=== PATIENT | female | born 1945 | race Two or more races ===

== ENCOUNTER 2018-12-01 22:25 | Inpatient (IN) | payer OTHER ==
[~2018-12-01] VITALS: Ht 152.4 cm; Wt 54.4 kg
[2018-12-01] MEDS ORDERED: LISI10TA5 PO (22:41)
[2018-12-01] MEDS ORDERED: PREDNISONE PO (22:41)
[2018-12-01] MEDS ORDERED: PANT40TA2 PO (22:41)
[2018-12-01 22:48] LABS: BASOPHILS # (AUTO) 0.1 K/uL (0.0-8.0); BASOPHILS % (AUTO) 0.9 % (0.0-2.0); EOSINOPHILS # (AUTO) 0.1 K/uL (0.0-0.7); EOSINOPHILS % (AUTO) 1.5 % (0.0-7.0); HEMATOCRIT 36.9 % (31.2-41.9); HEMOGLOBIN 12.2 g/dL (10.9-14.3); LYMPHOCYTES # (AUTO) 2.1 K/uL (20.0-40.0); MEAN CORPUSCULAR HEMOGLOBIN 31.7 uug (24.7-32.8); MEAN CORPUSCULAR HGB CONC 33 g/dL (32.3-35.6); MEAN CORPUSCULAR VOLUME 95.7 fL (75.5-95.3); MONOCYTES # (AUTO) 0.8 K/uL (2.0-10.0); MONOCYTES % (AUTO) 13.1 % (0.0-11.0); NEUTROPHILS # (AUTO) 2.8 K/uL (1.8-8.9); NEUTROPHILS % (AUTO) 48.5 % (38.5-71.5); PLATELET COUNT (AUTO) 214 K/uL (179-408); RED BLOOD CELL COUNT(AUTO) 3.86 MIL/uL (3.63-4.92); WHITE BLOOD COUNT (AUTO) 5.7 K/uL (3.8-11.8)
[2018-12-01 22:53] LABS: *BILIRUBIN,URIN NEGATIVE (NEGATIVE); *BLOOD, URINE 1+ (NEGATIVE); *CLARITY,URINE CLEAR (CLEAR); *COLOR,URINE YELLOW (YELLOW); *KETONES,URINE NEGATIVE (NEGATIVE); *UROBILINOGEN,URINE 0.2 E.U./dl (NORMAL); LEUKOCYTE ESTERASE ,URINE TRACE (NEGATIVE); NITRITE, URINE NEGATIVE (NEGATIVE); PH,URINE 5.5 (5.0-8.0); UGLUCOSE NEGATIVE (NEGATIVE)
[2018-12-01] MEDS ORDERED: LISINOPRIL 10 MG TABLET ONE (22:57)
[2018-12-01 23:00] LABS: BACTERIA,URINE NONE SEEN /HPF (NONE SEEN); SQUAMOUS EPITHELIAL CELL,UR FEW /HPF (NONE SEEN); WBC,URINE 0-3 /HPF (0-3)
[2018-12-01] MEDS ORDERED: LISINOPRIL 10 MG TABLET PO ONE (23:00)
[2018-12-01] MEDS ORDERED: HYDR200T81 PO (23:00)
[2018-12-01 23:01] LABS: CARBON DIOXIDE 26 mmol/L (21-32); CHLORIDE 103 mmol/L (98-107); CREATININE 1.2 mg/dL (0.6-1.3); GLUCOSE 85 mg/dL (74-106); POTASSIUM 3.5 mmol/L (3.5-5.1); UREA NITROGEN, BLOOD 13 mg/dL (7-18)
[2018-12-01 23:07] LABS: ACETAMINOPHEN 21.7 ug/mL (10-30); ALANINE AMINOTRANSFERASE 33 U/L (14-59); ALKALINE PHOSPHATASE 79 U/L (50-136); ASPARTATE AMINOTRANSFERASE 34 U/L (15-37); BILIRUBIN,DIRECT 0.1 mg/dL (0.0-0.2); BILIRUBIN,TOTAL 0.6 mg/dL (0.2-1.0); TOTAL PROTEIN, SERUM 7.7 g/dL (6.4-8.2)
[2018-12-01 23:12] LABS: ETHANOL < 3 MG/DL (0-0)
[2018-12-01] MEDS ORDERED: CLONIDINE HCL 0.2 MG TABLET ONE (23:13)
[2018-12-01 23:15] LABS: *AMPHETAMINE, URINE NEGATIVE (NEGATIVE); *BARBITURATE, URINE NEGATIVE (NEGATIVE); *CANNABINOID, URINE NEGATIVE (NEGATIVE); *COCCAINE, URINE NEGATIVE (NEGATIVE); *OPIATE, URINE NEGATIVE (NEGATIVE); *PHENCYCLIDINE SCREEN,URINE NEGATIVE (NEGATIVE)
[2018-12-01] MEDS ORDERED: CLONIDINE HCL 0.2 MG TABLET PO ONE (23:15)
[2018-12-02] MEDS ORDERED: MAG HYDROX/AL HYDROX/SIMETH 30 ML LIQUID UDC PO PRN
[2018-12-02 00:30] VITALS: BP 119/47
[2018-12-02 06:02] VITALS: BP 134/73
[2018-12-02 07:02] VITALS: BP 130/49
[2018-12-02] MEDS: LORAZEPAM 1 MG TABLET PO PRN (11:59)
[2018-12-02 14:45] VITALS: BP 104/42
[2018-12-02 20:23] VITALS: BP 137/52
[2018-12-03] MEDS: ACETAMINOPHEN 325 MG TABLET PO PRN ×2 (00:34→22:01)
[2018-12-03] MEDS: TEMAZEPAM 7.5 MG CAPSULE PO PRN ×2 (00:34→23:06)
[2018-12-03] MEDS: MAGNESIUM HYDROXIDE 30 ML LIQUID UDC PO PRN ×2 (03:44→08:54)
[2018-12-03 06:22] LABS: BASOPHILS % (AUTO) 0.7 % (0.0-2.0); EOSINOPHILS # (AUTO) 0.2 K/uL (0.0-0.7); HEMATOCRIT 35.8 % (31.2-41.9); HEMOGLOBIN 11.5 g/dL (10.9-14.3); LYMPHOCYTES # (AUTO) 2.5 K/uL (20.0-40.0); LYMPHOCYTES % (AUTO) 45.5 % (20.5-51.5); MEAN CORPUSCULAR HEMOGLOBIN 30.7 uug (24.7-32.8); MEAN CORPUSCULAR HGB CONC 32 g/dL (32.3-35.6); MEAN CORPUSCULAR VOLUME 96.1 fL (75.5-95.3); MONOCYTES # (AUTO) 0.5 K/uL (2.0-10.0); NEUTROPHILS # (AUTO) 2.2 K/uL (1.8-8.9); NEUTROPHILS % (AUTO) 40.8 % (38.5-71.5); PLATELET COUNT (AUTO) 206 K/uL (179-408); RED BLOOD CELL COUNT(AUTO) 3.73 MIL/uL (3.63-4.92); WHITE BLOOD COUNT (AUTO) 5.4 K/uL (3.8-11.8)
[2018-12-03 06:28] LABS: CARBON DIOXIDE 31 mmol/L (21-32); CHLORIDE 104 mmol/L (98-107); CREATININE 1.3 mg/dL (0.6-1.3); GLUCOSE 80 mg/dL (74-106); MAGNESIUM 1.9 mg/dL (1.8-2.4); PHOSPHOROUS 3.4 mg/dL (2.5-4.9); POTASSIUM 3.6 mmol/L (3.5-5.1); UREA NITROGEN, BLOOD 17 mg/dL (7-18)
[2018-12-03 07:36] VITALS: BP 161/74
[2018-12-03 15:03] LABS: THYROID STIMULATING HORMONE 1.559 mIU/mL (0.358-3.740)
[2018-12-03] MEDS ORDERED: PRED10TA PO (15:23)
[2018-12-03 16:45] VITALS: BP 191/91
[2018-12-03] MEDS: MIRTAZAPINE 15 MG TABLET PO SCH (20:29)
[2018-12-03 21:35] VITALS: BP 177/71
[2018-12-03] MEDS ORDERED: CLONIDINE HCL 0.1 MG TABLET PO PRN (22:45)
[2018-12-03 22:50] VITALS: BP 168/71
[2018-12-03] MEDS ORDERED: LISINOPRIL 10 MG TABLET PO ONE (23:00)
[2018-12-03 23:50] VITALS: BP 148/58
[2018-12-04] MEDS: risperiDONE 0.5 MG TABLET PO SCH ×3 (00:12→20:51)
[2018-12-04] MEDS: PANTOPRAZOLE SODIUM 40 MG TABLET.DR PO SCH (06:30)
[2018-12-04 07:30] VITALS: BP 137/61
[2018-12-04] MEDS: LISINOPRIL 10 MG TABLET PO SCH (08:31)
[2018-12-04] MEDS: HYDROXYCHLOROQUINE SULFATE 200 MG TABLET PO SCH (08:49)
[2018-12-04] MEDS: predniSONE 10 MG TABLET PO SCH (08:49)
[2018-12-04 16:00] VITALS: BP 139/65
[2018-12-04] MEDS: MIRTAZAPINE 15 MG TABLET PO SCH (20:50)
[2018-12-04 21:07] VITALS: BP 142/62
[2018-12-04] MEDS: TEMAZEPAM 7.5 MG CAPSULE PO PRN (21:30)
[2018-12-05] MEDS: PANTOPRAZOLE SODIUM 40 MG TABLET.DR PO SCH (06:30)
[2018-12-05 07:30] VITALS: BP 106/67
[2018-12-05] MEDS: LISINOPRIL 10 MG TABLET PO SCH (08:20)
[2018-12-05] MEDS: risperiDONE 0.5 MG TABLET PO SCH ×2 (08:21→21:42)
[2018-12-05] MEDS: HYDROXYCHLOROQUINE SULFATE 200 MG TABLET PO SCH (08:22)
[2018-12-05] MEDS: predniSONE 10 MG TABLET PO SCH (08:22)
[2018-12-05] MEDS: ACETAMINOPHEN 325 MG TABLET PO PRN (11:14)
[2018-12-05 16:00] VITALS: BP 125/49
[2018-12-05] MEDS: MIRTAZAPINE 15 MG TABLET PO SCH (21:42)
[2018-12-05] MEDS: TEMAZEPAM 7.5 MG CAPSULE PO PRN (23:28)
[2018-12-06] MEDS: PANTOPRAZOLE SODIUM 40 MG TABLET.DR PO SCH (06:33)
[2018-12-06 07:30] VITALS: BP 173/81
[2018-12-06 08:00] VITALS: BP 122/51
[2018-12-06] MEDS: risperiDONE 0.5 MG TABLET PO SCH ×2 (08:11→20:35)
[2018-12-06] MEDS: HYDROXYCHLOROQUINE SULFATE 200 MG TABLET PO SCH (08:11)
[2018-12-06] MEDS: LISINOPRIL 10 MG TABLET PO SCH (08:12)
[2018-12-06] MEDS: predniSONE 10 MG TABLET PO SCH (08:12)
[2018-12-06 16:05] VITALS: BP 136/51
[2018-12-06] MEDS: MIRTAZAPINE 15 MG TABLET PO SCH (20:35)
[2018-12-07] MEDS ORDERED: CEphaleXIN 500 MG CAPSULE PO SCH (06:00)
[2018-12-07] MEDS: PANTOPRAZOLE SODIUM 40 MG TABLET.DR PO SCH (06:30)
[2018-12-07 07:30] VITALS: BP 124/51
[2018-12-07] MEDS: risperiDONE 0.5 MG TABLET PO SCH ×2 (08:42→20:04)
[2018-12-07] MEDS: HYDROXYCHLOROQUINE SULFATE 200 MG TABLET PO SCH (08:42)
[2018-12-07] MEDS: LISINOPRIL 10 MG TABLET PO SCH (08:42)
[2018-12-07] MEDS: predniSONE 10 MG TABLET PO SCH (08:42)
[2018-12-07 16:07] VITALS: BP 113/44
[2018-12-07 20:00] VITALS: BP 127/51
[2018-12-07] MEDS: MIRTAZAPINE 15 MG TABLET PO SCH (20:04)
[2018-12-07] MEDS: LORAZEPAM 1 MG TABLET PO PRN (21:05)
[2018-12-07] MEDS: TEMAZEPAM 7.5 MG CAPSULE PO PRN (22:19)
[2018-12-08] MEDS: PANTOPRAZOLE SODIUM 40 MG TABLET.DR PO SCH (06:33)
[2018-12-08 07:30] VITALS: BP 135/64
[2018-12-08] MEDS: predniSONE 10 MG TABLET PO SCH (08:11)
[2018-12-08] MEDS: HYDROXYCHLOROQUINE SULFATE 200 MG TABLET PO SCH (08:11)
[2018-12-08] MEDS: LISINOPRIL 10 MG TABLET PO SCH (08:11)
[2018-12-08] MEDS: risperiDONE 0.5 MG TABLET PO SCH ×2 (08:11→21:00)
[2018-12-08 09:48] LABS: *BILIRUBIN,URIN NEGATIVE (NEGATIVE); *BLOOD, URINE NEGATIVE (NEGATIVE); *CLARITY,URINE CLEAR (CLEAR); *COLOR,URINE YELLOW (YELLOW); *KETONES,URINE NEGATIVE (NEGATIVE); *UROBILINOGEN,URINE 0.2 E.U./dl (NORMAL); LEUKOCYTE ESTERASE ,URINE NEGATIVE (NEGATIVE); NITRITE, URINE NEGATIVE (NEGATIVE); UGLUCOSE NEGATIVE (NEGATIVE)
[2018-12-08 09:56] LABS: RBC,URINE NONE SEEN /HPF (0-3); WBC,URINE 0-3 /HPF (0-3)
[2018-12-08 09:57] LABS: BACTERIA,URINE FEW /HPF (NONE SEEN); SQUAMOUS EPITHELIAL CELL,UR FEW /HPF (NONE SEEN)
[2018-12-08 16:09] VITALS: BP 129/45
[2018-12-08 20:05] VITALS: BP 134/48
[2018-12-08] MEDS: MIRTAZAPINE 15 MG TABLET PO SCH (21:00)
[2018-12-09 07:30] VITALS: BP 151/99
[2018-12-09] MEDS: PANTOPRAZOLE SODIUM 40 MG TABLET.DR PO SCH (07:54)
[2018-12-09] MEDS: predniSONE 10 MG TABLET PO SCH (08:34)
[2018-12-09] MEDS: HYDROXYCHLOROQUINE SULFATE 200 MG TABLET PO SCH (08:34)
[2018-12-09] MEDS: risperiDONE 0.5 MG TABLET PO SCH ×2 (08:34→20:11)
[2018-12-09] MEDS: LISINOPRIL 10 MG TABLET PO SCH (08:35)
[2018-12-09 10:59] VITALS: BP 151/97
[2018-12-09 16:10] VITALS: BP 106/49
[2018-12-09] MEDS: ACETAMINOPHEN 325 MG TABLET PO PRN (16:24)
[2018-12-09] MEDS: LORAZEPAM 1 MG TABLET PO PRN (19:49)
[2018-12-09] MEDS: MIRTAZAPINE 15 MG TABLET PO SCH (20:11)
[2018-12-09 20:53] VITALS: BP 129/50
[2018-12-10] MEDS: PANTOPRAZOLE SODIUM 40 MG TABLET.DR PO SCH (06:32)
[2018-12-10 07:30] VITALS: BP 147/60
[2018-12-10] MEDS: LISINOPRIL 10 MG TABLET PO SCH (08:24)
[2018-12-10] MEDS: risperiDONE 0.5 MG TABLET PO SCH ×2 (08:24→20:45)
[2018-12-10] MEDS: predniSONE 10 MG TABLET PO SCH (08:24)
[2018-12-10] MEDS: HYDROXYCHLOROQUINE SULFATE 200 MG TABLET PO SCH (08:25)
[2018-12-10 15:48] VITALS: BP 111/42
[2018-12-10] MEDS: LORAZEPAM 1 MG TABLET PO PRN (19:42)
[2018-12-10 20:06] VITALS: BP 118/46
[2018-12-10] MEDS: MIRTAZAPINE 15 MG TABLET PO SCH (20:45)
[2018-12-10] MEDS: TEMAZEPAM 7.5 MG CAPSULE PO PRN (22:06)
[2018-12-11] MEDS: PANTOPRAZOLE SODIUM 40 MG TABLET.DR PO SCH (06:34)
[2018-12-11 07:30] VITALS: BP 148/55
[2018-12-11 08:00] VITALS: BP 148/55
[2018-12-11] MEDS: HYDROXYCHLOROQUINE SULFATE 200 MG TABLET PO SCH (08:00)
[2018-12-11] MEDS: LISINOPRIL 10 MG TABLET PO SCH (08:00)
[2018-12-11] MEDS: risperiDONE 0.5 MG TABLET PO SCH (08:00)
[2018-12-11] MEDS: predniSONE 10 MG TABLET PO SCH (08:00)
== END 2018-12-11 13:00 | disposition home or self-care (01) | DRG 885 ==
LOC: ER 22:27 → GPSOV 23:52 → MEDSURG3 12-02 10:15 → GPSOV3 12-02 11:41 → GPS 12-03 11:43
PROVIDERS: ADMIT Psychiatry & Neurology Psychiatry; ATTEND Nurse Practitioner Acute Care
DX: F32.3 Major depressive disorder, single episode, severe with psychotic features (principal); M32.9 Systemic lupus erythematosus, unspecified; N39.0 Urinary tract infection, site not specified; Z83.3 Family history of diabetes mellitus; Z82.3 Family history of stroke; F17.210 Nicotine dependence, cigarettes, uncomplicated; M19.90 Unspecified osteoarthritis, unspecified site; G89.29 Other chronic pain; M54.5 Low back pain; I11.9 Hypertensive heart disease without heart failure; E78.5 Hyperlipidemia, unspecified; D75.89 Other specified diseases of blood and blood-forming organs; B96.89 Other specified bacterial agents as the cause of diseases classified elsewhere; N27.0 Small kidney, unilateral; I70.0 Atherosclerosis of aorta
CPT/HCPCS: 36415; 71045; 80307; 83690; 83735; 84100; 84443; 85025; 93005; A4663; G0480; G0480-TC; J7512